=== PATIENT | male | born 1970 | race Caucasian/White ===

== ENCOUNTER 2019-04-27 20:41 | Emergency (ER) | payer OTHER, SELFPAY ==
--- NOTE | 2019-04-27 00:07 | DI.RAD_ITS ---
EXAM: XR FINGER RT RING POST REDUC INDICATION: Postreduction. COMPARISON: XR FINGER RT RING from 04/27/2019 TECHNIQUE: 2D digital imaging was performed. FINDINGS: Three post reduction views were obtained and show reduction of the previously noted PIP dislocation o f the ring finger. Tiny fracture fragment again noted at the PIP joint. IMPRESSION:
[2019-04-27 20:50] VITALS: BP 126/89; PULSE 67; RESP 16; TEMP 36.4; O2SAT 98
[2019-04-27 21:42] VITALS: BP 117/77; PULSE 60; RESP 16; TEMP 36.9; O2SAT 99
--- NOTE | 2019-04-27 21:49 | DI.RAD_ITS ---
EXAM: XR FINGER RT RING INDICATION: fall, deformity PIP. COMPARISON: XR FINGER RT RING POST REDUC from 04/28/2019 TECHNIQUE: 2D digital imaging was performed. FINDINGS: Three views were obtained. There is dorsal dislocation of the middle phalanx from the proximal phala nx of the ring finger. A tiny free fracture fragment is noted which may originate from either bone. No other fracture seen. IMPRESSION:
[2019-04-27 22:30] LABS: Abs Immature Grans 0.02 k/cumm (0.0-0.09); Absolute Basophil Count 0.03 k/cumm (0.0-0.2); Absolute Lymphocyte Count 1.44 k/cumm (1.2-3.4); Absolute Monocyte Count 0.55 k/cumm (0.11-0.7); Absolute Neutrophil Count 6.67 k/cumm (1.2-6.7); Basophils % 0.3; Eosinophils % 1.1; HCT 41.9 % (40.0-50.0); HGB 14.3 g/dL (13.5-17.5); Immature Grans % 0.2; Lymphocytes % 16.3; Mean Corp. HGB Concentration 34.1 g/dL (32.0-36.0); Mean Corpuscular Volume 90.7 fL (80-95); Mean Platelet Volume 10.5 fL (8.0-11.0); Monocytes % 6.2; Neutrophils % 75.9; Platelet Count 297 x1000/uL (130-400); RBC 4.62 m/cumm (4.50-6.00); RBC Distribution Width 12.5 % (11.8-14.1); White Blood Cell Count 8.81 k/cumm (4.4-10.8)
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
[2019-04-27] MEDS: Omnipaque 350 MG/ML 100 ML BTL IJ (22:39)
[2019-04-27 23:01] LABS: ALT 35 U/L (16-63); AST 25 U/L (15-37); Albumin 4.4 g/dL (3.4-5.0); Alkaline Phosphatase 73 U/L (46-116); Anion Gap 11.2 mmol/L (3-11); BUN 27 mg/dL (7-18); Bilirubin, Total 0.5 mg/dL (0.2-1.0); CO2 26.8 mmol/L (21.0-32.0); CREATININE 1.15 mg/dL (0.70-1.30); Calcium 9.5 mg/dL (8.5-10.1); Chloride 102 mmol/L (98-107); Glucose 90 mg/dL (70-100); Potassium 4.6 mmol/L (3.5-5.1); Sodium 140 mmol/L (136-145); Total Protein 7.7 g/dL (6.4-8.2)
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
--- NOTE | 2019-04-28 00:12 | DI.VRAD_ITS ---
PROCEDURE INFORMATION: Exam: XR Right Finger(s) Exam date and time: 04/27/2019 00:08 Clinical history: 49 years old, male; Injury or trauma; Injury history: Post reduction; Initial encounter; Dislocation; Right; Ring finger; Injury date: 04/27/2019 TECHNIQUE: Imaging protocol: XR Right fingers. Views: Minimum 2 views. COMPARISON: CR XR FINGER RT RING 04/27/2019 22:43 FINDINGS: Bones/joints: The fourth PIP joint has been relocated. A tiny fracture fragment identified on the pre-reduction study is not well identified. This could be present along the radial aspect of the fourth PIP joint. No displaced fracture is identified. Soft tissues: Digital soft tissue swelling. IMPRESSION: The fourth PIP joint has been relocated. Dictated and Authenticated by: Yin Agosto MD. Ordering:CAT Sparrow MD
[2019-04-28 00:14] VITALS: BP 121/84; PULSE 68; RESP 16; O2SAT 96
[2019-04-28] MEDS: Ketorolac 30 MG/ML VIAL IVP (00:17)
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
== END 2019-04-28 01:00 | disposition home or self-care (01) ==
PROVIDERS: Emergency Provider Nurse Practitioner Family; PCP Family Medicine
DX: S63.294A Dislocation of distal interphalangeal joint of right ring finger, initial encounter (principal); R10.12 Left upper quadrant pain; R91.1 Solitary pulmonary nodule; V17.0XXA Pedal cycle driver injured in collision with fixed or stationary object in nontraffic accident, initial encounter
CPT/HCPCS: 26770; 73140; 74177; 80053; 86850; 86900; 86901; 96374; 99285; 71260; 85025; 99284; J1885; J3490

== ENCOUNTER 2021-03-29 12:19 | Outpatient (REF) | payer OTHER, SELFPAY ==
[2021-03-29 20:19] LABS: Calculated LDL 130 mg/dL (<100); Cholesterol 198 mg/dL (<200); Glucose 82 mg/dL (74-106); HDL Cholesterol 52 mg/dL (40-60); Triglyceride 83 mg/dL (<150)
[2021-03-29 20:55] LABS: Uric Acid 7.3 mg/dL (3.5-7.2)
== END 2021-03-29 12:20 | disposition home or self-care (01) ==
LOC: NCHCN 12:19
PROVIDERS: PCP Family Medicine; Visit Provider Family Medicine
DX: M10.9 Gout, unspecified (principal); Z00.00 Encounter for general adult medical examination without abnormal findings
CPT/HCPCS: 80061; 82947; 84550

== ENCOUNTER 2021-09-03 14:54 | Outpatient (REF) | payer OTHER, SELFPAY ==
[2021-09-03 21:32] LABS: Uric Acid 7.6 mg/dL (3.5-7.2)
[2021-09-04 19:50] LABS: PSA, Screening 0.4 ng/mL (0.0-3.5)
== END 2021-09-03 14:55 | disposition home or self-care (01) ==
LOC: NCHCN 14:54
PROVIDERS: PCP Family Medicine; Visit Provider Family Medicine
DX: M10.9 Gout, unspecified (principal); Z00.00 Encounter for general adult medical examination without abnormal findings; Z12.5 Encounter for screening for malignant neoplasm of prostate
CPT/HCPCS: 84153; 84550